=== PATIENT | female | born 1940 | race Caucasian/White ===

== ENCOUNTER → 2020-02-13 | Outpatient (CLI) | payer MEDICARE, OTHER ==
[2015-02-12 10:44] VITALS: BP 168/77
[~2020-02-13] MED LIST: ASPI81TA59 PO; DICL100G54 TP; FAMO-63 PO; GABA300C18 PO; IBUP-1060 PO; LEVO50TA5 PO; MELA1TAB9 PO; MELO7.5T29 PO; POLY17PO29 PO; PRAV20TA PO; ROPI1TAB4 PO; TOLT4CAP PO; TRAM50TA PO; TRAZ-118 PO
--- NOTE | 2020-02-13 14:54 | KCIC ---
STUDY: MRI of the right shoulder without contrast INDICATION: Right shoulder pain. COMPARISON: No prior MRI. TECHNIQUE: Multiplanar MR imaging of the right shoulder performed without the use of intravenous or intra-articular contrast. FINDINGS: The study is severely limited/borderline nondiagnostic due to the degree of motion artifact despite repeat imaging attempts. AC joint: AC joint arthrosis appears moderate. Small volume fluid within the subacromial subdeltoid bursa. Rotator cuff: There appears to be high-grade/full-thickness tearing of the majority of the supraspinatus at the footprint from the leading edge to the infraspinatus junction. The infraspinatus appears to be mostly intact though tearing may extend to involve the far anterior aspect of the footprint. Intact teres minor. Tendinosis and partially torn subscapularis. Moderate fatty infiltration of the subscapularis. No significant atrophy/fatty infiltration of the supraspinatus, infraspinatus or teres minor. Labrum: The lower half of the labrum appears to be intact but the upper half is likely degenerated/torn. Long head biceps tendon: Status post tenodesis. 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 Uncertain integrity of the humeral head cartilage. Bones: No fracture. Miscellaneous: Small shoulder joint effusion. Impression: 1. Severely limited study due to patient motion despite repeat imaging. 2. The majority of the supraspinatus exhibits high-grade/full-thickness tearing from the leading edge to the infraspinatus junction. There may be tear extension to involve the anterior portion of the infraspinatus but this is uncertain. Tendinosis and partial tearing of the subscapularis. Moderate subscapularis atrophy. 3. Status post long head biceps tenodesis. The upper margin of the labrum is presumably torn/degenerated. 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 4. Moderate appearing AC joint arthrosis. Small volume fluid distention of the subacromial/subdeltoid bursa and a small shoulder joint effusion. Electronically signed by: HÉCTOR SANDERS MD (02/13/2020 2:51 PM) [id number]
== END | disposition home or self-care (01) ==
LOC: KCIC MRI 12:56
PROVIDERS: ATTEND Orthopaedic Surgery
DX: M19.011 Primary osteoarthritis, right shoulder (principal); M25.411 Effusion, right shoulder; M75.101 Unspecified rotator cuff tear or rupture of right shoulder, not specified as traumatic; M65.849 Other synovitis and tenosynovitis, unspecified hand
CPT/HCPCS: 73221

== ENCOUNTER → 2020-03-05 | Outpatient (CLI) | payer MEDICARE, OTHER ==
[2015-02-12 10:44] VITALS: BP 168/77
[~2020-03-05] MED LIST changes: -TRAM50TA PO
--- NOTE | 2020-03-05 13:55 | EKG ---
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
[2020-03-05 14:05] LABS: BASO # 0.1 x10^3/uL (0.0-0.2); BASO % 1 % (0-3); EOS # 0.2 x10^3/uL (0.0-0.7); EOS % 2 % (0-3); HEMATOCRIT 46.2 % (36.0-47.0); HEMOGLOBIN 15.6 g/dL (12.0-15.5); LYMPH # 1.3 x10^3/uL (1.0-4.8); LYMPH % 14 % (24-48); MEAN CORPUSCULAR HEMOGLOBIN 30 pg (25-35); MEAN CORPUSCULAR HGB CONC 34 g/dL (31-37); MEAN CORPUSCULAR VOLUME 89 fL (79-100); MONO # 0.5 x10^3/uL (0.0-1.1); MONO % 6 % (0-9); NEUT # 7.3 x10^3/uL (1.8-7.7); NEUT % 78 % (31-73); PLATELET COUNT 172 x10^3/uL (140-400); RED BLOOD COUNT 5.18 x10^6/uL (3.50-5.40); RED CELL DISTRIBUTION WIDTH 14.7 % (11.5-14.5); WHITE BLOOD COUNT 9.3 x10^3/uL (4.0-11.0)
[2020-03-05 14:14] LABS: ALBUMIN 3.5 g/dL (3.4-5.0); C-REACTIVE PROTEIN 7.2 mg/L (0-3.3); CREATININE 0.7 mg/dL (0.6-1.0); GFR 80.1; POTASSIUM 3.7 mmol/L (3.5-5.1)
--- NOTE | 2020-03-05 16:20 | RAD ---
EXAM: CHEST PA LATERAL INDICATION: Reason: PRE OP. RIGHT SHOULDER ARTHROPLASTY SCHEDULED 03/25 / Spl. Instructions: / History: . TECHNIQUE: PA and lateral views COMPARISON: None FINDINGS: The heart size is mildly enlarged. The great vessels appear unremarkable. There is no hilar or mediastinal mass. The lungs are low in volume and show coarse reticular densities, best appreciated in the left lower lobe with associated low lung volumes.. There is no pleural effusion or pneumothorax. There are no significant osseous abnormalities. IMPRESSION: Cardiomegaly and findings of pulmonary fibrosis. No acute superimposed cardiopulmonary process shown. Electronically signed by: Olga Longoria MD (03/05/2020 4:17 PM) [id number]
[2020-03-06 01:08] LABS: HEMOGLOBIN A1C 7.7 % (4.8-5.6)
== END | disposition home or self-care (01) ==
LOC: SURGPAT 13:02
PROVIDERS: ATTEND Orthopaedic Surgery
DX: Z01.818 Encounter for other preprocedural examination (principal); M24.411 Recurrent dislocation, right shoulder; I51.7 Cardiomegaly; M19.011 Primary osteoarthritis, right shoulder; J84.10 Pulmonary fibrosis, unspecified; Z88.0 Allergy status to penicillin
CPT/HCPCS: 36415; 71046; 80048; 82040; 82306; 83036; 85025; 85610; 85730; 86140; 87641; 93005

== ENCOUNTER → 2020-03-21 | Outpatient (CLI) | payer MEDICARE, OTHER ==
[2015-02-12 10:44] VITALS: BP 168/77
[~2020-03-21] MED LIST changes: +TRAM50TA PO
== END | disposition home or self-care (01) ==
LOC: LAB 12:56
PROVIDERS: ATTEND Orthopaedic Surgery
DX: Z01.812 Encounter for preprocedural laboratory examination (principal); Z20.828 Contact with and (suspected) exposure to other viral communicable diseases; Z88.0 Allergy status to penicillin; Z88.8 Allergy status to other drugs, medicaments and biological substances; Z88.2 Allergy status to sulfonamides
CPT/HCPCS: U0003-CS